=== PATIENT | male | born 1955 | race Caucasian/White ===

== ENCOUNTER → 2021-07-19 | Outpatient (CLI) | payer OTHER, SELFPAY ==
--- NOTE | 2021-07-19 11:07 | ECHOD_ITS ---
Reason For Study: CAD Procedure This was a 2D Doppler, Color Flow transthoracic echocardiogram. Exam performed in department. Left Ventricle Normal LV size. Left ventricular systolic function is normal. The estimated ejection fraction is 60 %. Stage 1 diastolic dysfunction. No regional wall motion abnormalities noted. Right Ventricle Normal RV size. Normal systolic function. Atria Normal left atrium. Normal right atrium. Mitral Valve Normal mitral valve. Mild (1+) eccentric mitral valve insufficiency. Tricuspid Valve Normal tricuspid valve. Mild (1+) tricuspid valve insufficiency. Pulmonary artery systolic pressure is 30 mmHg. Aortic Valve Normal aortic valve. Pulmonic Valve Normal pulmonic valve. Great Vessels Normal aortic root. The pulmonary artery is normal size. Normal inferior vena cava. Pericardium/Pleural No pericardial effusion. MMode/2D Measurements & Calculations LVIDd: 5.2 cm IVSd: 1.0 cm Ao root diam: 3.3 cm LVIDs: 3.4 cm LVPWd: 1.0 cm RVDd: 3.4 cm FS: 34.1 % LAV(MOD-bp): 47.1 ml LVAd ap4: 32.7 cm2 SV(MOD-sp4): 67.5 ml LAV(MOD-bp) Indexed: 22.8 ml/m2 LVLd ap4: 8.5 cm LAV(MOD-sp2): 41.2 ml EDV(MOD-sp4): 103.3 ml LAV(MOD-sp4): 46.0 ml EDV(sp4-el): 106.1 ml LVAs ap4: 16.9 cm2 LVLs ap4: 7.2 cm ESV(MOD-sp4): 35.8 ml ESV(sp4-el): 33.9 ml EF(MOD-sp4): 65.4 % EF(sp4-el): 68.0 % SV(sp4-el): 72.1 ml LA A4 area: 17.4 cm2 LA dimension(2D): 3.5 cm RA A4 area: 15.4 cm2 Time Measurements MV dec time: 0.29 sec Doppler Measurements & Calculations MV E max devyn: 59.1 cm/sec Lat Peak E' Devyn: 8.5 cm/sec Med Peak E' Devyn: 8.1 cm/sec MV A max devyn: 55.5 cm/sec E/E' lat: 7.0 E/E' med: 7.3 MV E/A: 1.1 Ao V2 max: 117.3 cm/sec LV V1 max: 87.9 cm/sec PA V2 max: 90.4 cm/sec Ao max P.5 mmHg LV V1 max P.1 mmHg TR max devyn: 276.0 cm/sec TR max P.5 mmHg ECHO/Echo Complete Interpretation Summary Normal LV size. Left ventricular systolic function is normal. The estimated ejection fraction is 60 %. Mild (1+) tricuspid valve insufficiency. Pulmonary artery systolic pressure is 30 mmHg. Stage 1 diastolic dysfunction. Ordering Physician: JACK GERARDO Referring Physician: JACK GERARDO Performed By: Rosaura Ackerman RDCS
== END | disposition home or self-care (01) ==
LOC: CVS 11:01
DX: I25.10 Atherosclerotic heart disease of native coronary artery without angina pectoris (principal)
CPT/HCPCS: 93306